=== PATIENT | female | born 1990 | race Caucasian/White ===

== ENCOUNTER 2019-12-13 23:23 | Emergency (ER) | payer SELFPAY ==
[2019-12-13 23:35] VITALS: BP 134/78; PULSE 95; RESP 18; TEMP 37; O2SAT 100; BMI 24.7
[2019-12-13 23:43] LABS: Basophils % 0.4 %; Eosinophils # 0.6 10^3/uL (0.0-0.8); Eosinophils % 6.8 %; Hematocrit 37.9 % (37.0-47.0); Hemoglobin 12.5 g/dL (11.5-15.3); Lymphocytes # 2.9 10^3/uL (0.8-4.8); Lymphocytes % 34.1 %; Mean Corpuscular Hemoglobin 30.1 pg (28.0-34.0); Mean Corpuscular Volume 91.3 fL (81-99); Mean Platelet Volume 10.6 fL (7.4-10.4); Monocytes # 0.4 10^3/uL (0.2-0.9); Monocytes % 5.2 %; Neutrophils # 4.6 10^3/uL (1.8-7.7); Neutrophils % 53.4 %; Nucleated Red Blood Cells % 0 %; Platelet Count 339 10^3/cmm (130-400); Red Blood Count 4.15 10^6/uL (4.1-5.3); Red Cell Distribution Width 13.9 % (12.1-15.1); White Blood Count 8.5 10^3/uL (4.0-10.0)
--- NOTE | 2019-12-13 23:47 | CTR_ITS ---
PROCEDURE INFORMATION: Exam: CT Abdomen And Pelvis With Contrast Exam date and time: 12/13/2019 11:59 PM Age: 29 years old Clinical indication: Nausea; Abdominal pain; Localized; Right lower quadrant (rlq); Additional info: Abd pain TECHNIQUE: Imaging protocol: Computed tomography of the abdomen and pelvis with intravenous contrast. Radiation optimization: All CT scans at this facility use at least one of these dose optimization techniques: automated exposure control; mA and/or kV adjustment per patient size (includes targeted exams where dose is matched to clinical indication); or iterative reconstruction. Contrast material: OMNI 300; Contrast volume: 95 ml; Contrast route: INTRAVENOUS (IV); COMPARISON: No relevant prior studies available. RADIATION DOSE METRICS: Total DLP (mGy-cm): 1723.57 FINDINGS: Liver: There is no focal abnormality within the liver. Gallbladder and bile ducts: The gallbladder is normal. Pancreas: The pancreas is normal. Spleen: The spleen is normal. Adrenals: The adrenal glands are normal. Kidneys and ureters: The kidneys are normal. There is no evidence of renal or ureteral calcifications. There is no evidence of hydronephrosis. Stomach and bowel: There is no evidence of colitis/diverticulitis. There is thickening of the submucosal fat in the cecum as well as mild mucosal enhancement and stranding in the pericecal fat. There is what appears to be an inflamed in cut off diverticulum from the cecum. These findings are worrisome for cecal diverticulitis. Correlation with the clinical findings is suggested. Appendix: A normal appendix is identified. Intraperitoneal space: Unremarkable. No free air. No significant fluid collection. Vasculature: Unremarkable. No abdominal aortic aneurysm. Lymph nodes: Unremarkable. No enlarged lymph nodes. Bladder: Unremarkable as visualized. Reproductive: Unremarkable as visualized. Bones/joints: Unremarkable. No acute fracture. Soft tissues: Unremarkable. CT/CT abdomen pelvis w con* [id number] IMPRESSION: Findings worrisome for cecal diverticulitis. Radiation Dose CTDIVOL = (mGy): DLP = 1723.57 (mGy-cm)
[2019-12-13 23:56] LABS: HCG, Serum Qual Negative (Negative)
--- NOTE | 2019-12-13 23:59 | ED_ITS ---
HPI - Abdominal Pain General: Chief Complaint: Abdominal Pain Stated Complaint: abd pain Time Seen by Provider: 12/13/19 23:41 Source: patient Mode of arrival: ambulatory Limitations: no limitations History of Present Illness: HPI narrative: 29-year-old female who has had right lower abdominal pain over the last 2 days and is worsened today. She states the pain is sharp in nature denies any vomiting or diarrhea. She has been afebrile as well. MD elicited complaint: abdominal pain Pertinent past history: none Onset (ago): day(s) Pain Consistency: constant Location: RLQ Severity: moderate Quality: sharp Radiation: none Migration to: no migration Exacerbating factors: movement Relieving factors: rest Associated Symptoms: Denies chills, dysuria and fever(s) Review of Systems Const: Denies: fever(s), chills, body aches or change in appetite Eyes: Denies: blurry vision or eye discomfort ENMT: Denies: throat pain or dental pain Card: Denies: chest pain Resp: Denies: dyspnea GI: Reports: abdominal pain : Denies: dysuria Musc: Denies: neck pain or back pain Skin/Breast: Denies: rash Neuro: Denies: headache(s) Psych: Denies: depression Juanito/Lymph: Denies: easy bruising All/Imm: Denies: urticaria PFSH ED PFSH: Social History Smoking and tobacco status: current every day smoker Physical Exam Const: COMMON NORMALS: no acute distress, patient oriented x3 and healthy appearing HENMT: COMMON NORMALS: normocephalic and atraumatic HEAD & SCALP: normocephalic and atraumatic Eye: COMMON NORMALS: Equal, round and reactive pupils present and EOMs intact bilaterally PUPIL: Yes Equal, round and reactive pupils present Neck/C-Spine: COMMON NORMALS: full ROM and supple Chest: COMMONS NORMALS: normal inspection of the chest and normal palpation of entire chest wall Resp: COMMON NORMALS: normal respiratory effort, No retractions, No use of accessory muscles and clear to auscultation bilaterally AUSCULTATION: clear to auscultation bilaterally Cardio: COMMON NORMALS: regular rate, regular rhythm and No murmurs present (Cardio) RATE: regular rate RHYTHM: regular rhythm GI: COMMON NORMALS: Normal to inspection, nondistended, normoactive bowel sounds present, Soft to palpation and no masses PALPATION: Yes Soft to palpation and Yes Tenderness to palpation present (GI) Details: RLQ Extremity: COMMON NORMALS: normal to inspection and full ROM Neuro: COMMON NORMALS: patient oriented x3, moves all extremities and no focal motor deficits Psych: COMMON NORMALS: mental status grossly normal, Normal thought process present and cooperative THOUGHT PROCESS: Normal thought process present Skin: COMMON NORMALS: no rashes or lesions noted and no wounds GENERAL SKIN EXAM: no rashes or lesions noted Course Vital Signs: Vital signs: Vital Signs Temperature 98.6 F 12/13/19 23:35 Pulse Rate 95 12/13/19 23:35 Respiratory Rate 18 12/13/19 23:35 Blood Pressure 134/78 12/13/19 23:35 Pulse Oximetry 100 12/13/19 23:35 MDM - Abdominal Pain MDM Narrative: Medical decision making narrative: Patient presents with abdominal pain and CT shows diverticulitis. Patient's white count is normal and has no abscess. We will place her on Augmentin and she is stable for discharge. She is to follow-up primary care doctor in 2 to 4 days return if worsening. Lab Data: Labs: Lab Results 12/13/19 12/13/19 12/13/19 Range/Units 23:38 23:38 23:38 WBC 8.5 (4.0-10.0) 10^3/ uL RBC 4.15 (4.1-5.3) 10^6/u L Hgb 12.5 (11.5-15.3) g/dL Hct 37.9 (37.0-47.0) % MCV 91.3 (81-99) fL MCH 30.1 (28.0-34.0) pg MCHC 33.0 (30.0-36.0) g/dL RDW 13.9 (12.1-15.1) % Plt Count 339 (130-400) 10^3/c mm MPV 10.6 H (7.4-10.4) fL Neut % (Auto) 53.4 % Lymph % (Auto) 34.1 % Petroleum % (Auto) 5.2 % Eos % (Auto) 6.8 % Baso % (Auto) 0.4 % Neut # (Auto) 4.6 (1.8-7.7) 10^3/u L Lymph # (Auto) 2.9 (0.8-4.8) 10^3/u L Petroleum # (Auto) 0.4 (0.2-0.9) 10^3/u L Eos # (Auto) 0.6 (0.0-0.8) 10^3/u L Baso # (Auto) 0.0 (0.0-0.1) 10^3/u L Nucleated RBC % (a uto) 0 % Nucleated RBCs # 0.0 /100WBC Sodium 140 (136-145) mmol/L Potassium 3.9 (3.5-5.1) mmol/L Chloride 103 (98-107) mmol/L Carbon Dioxide 23 (22-29) mmol/L Anion Gap 17.9 (5-19) BUN 18 (6-20) mg/dL Creatinine 1.1 H (0.5-0.9) mg/dL GFR Calculation 58.7 L (90-130) mL/min Glucose 110 (65-115) mg/dL Calculated Osmolal ity 287 (285-295) mOsm/k g Calcium 9.3 (8.5-10.5) mg/dL Total Bilirubin 0.2 (0.15-1.2) mg/dL AST 38 H (0-32) U/L ALT 34 H (0-33) U/L Alkaline Phosphata se 82 (35-105) IU/L Total Protein 7.2 (6.6-8.7) g/dL Albumin 4.3 (3.5-5.2) g/dL Globulin 2.9 (1.3-4.6) g/dL Lipase 31 (13-60) U/L HCG, Qual Negative (Negative) Imaging Data ^: CT Abd/Pel: Radiologist's impression: [address] [place] [address] CT Scan Report Signed Patient: Franchesca Rinaldi Unit #: [id number] : 1990 Age/Sex: 29 / F ADM Date: 12/13/19 Loc: ER Room/Bed: Attending Dr: Ordering Provider/Ordering MD: Alli Oliver MD Date of Service: 12/13/19 Procedure(s): CT abdomen pelvis w con* [id number] Accession Number(s): [id number] Report Number: [id number] PROCEDURE INFORMATION: Exam: CT Abdomen And Pelvis With Contrast Exam date and time: 12/13/2019 11:59 PM Age: 29 years old Clinical indication: Nausea; Abdominal pain; Localized; Right lower quadrant (rlq); Additional info: Abd pain TECHNIQUE: Imaging protocol: Computed tomography of the abdomen and pelvis with intravenous contrast. Radiation optimization: All CT scans at this facility use at least one of these dose optimization techniques: automated exposure control; mA and/or kV adjustment per patient size (includes targeted exams where dose is matched to clinical indication); or iterative reconstruction. Contrast material: OMNI 300; Contrast volume: 95 ml; Contrast route: INTRAVENOUS (IV); COMPARISON: No relevant prior studies available. RADIATION DOSE METRICS: Total DLP (mGy-cm): 1723.57 FINDINGS: Liver: There is no focal abnormality within the liver. Gallbladder and bile ducts: The gallbladder is normal. Pancreas: The pancreas is normal. Spleen: The spleen is normal. Adrenals: The adrenal glands are normal. Kidneys and ureters: The kidneys are normal. There is no evidence of renal or ureteral calcifications. There is no evidence of hydronephrosis. Stomach and bowel: There is no evidence of colitis/diverticulitis. There is thickening of the submucosal fat in the cecum as well as mild mucosal enhancement and stranding in the pericecal fat. There is what appears to be an inflamed in cut off diverticulum from the cecum. These findings are worrisome for cecal diverticulitis. Correlation with the clinical findings is suggested. Appendix: A normal appendix is identified. Intraperitoneal space: Unremarkable. No free air. No significant fluid collection. Vasculature: Unremarkable. No abdominal aortic aneurysm. Lymph nodes: Unremarkable. No enlarged lymph nodes. Bladder: Unremarkable as visualized. Reproductive: Unremarkable as visualized. Bones/joints: Unremarkable. No acute fracture. Soft tissues: Unremarkable. CT/CT abdomen pelvis w con* [id number] IMPRESSION: Findings worrisome for cecal diverticulitis. Discharge Plan Discharge Patient Disposition: Home, Self-Care Clinical Impression: Diverticulitis Condition: Stable Prescriptions: [place] 5-325 mg tablet 1 tab PO Q6H PRN (Reason: pain) Qty: 14 RF: 0 ondansetron 4 mg tablet,disintegrating 4 mg PO Q6H PRN (Reason: nausea and vomiting) Qty: 14 RF: 0 Augmentin 875-125 mg tablet 1 tab PO BID Qty: 20 RF: 0 Discharge Orders: Discharge Order (Routine); Ordered 12/14/19 Ordered By: Alli Oliver Referrals: Van Zapata MD [Primary Care Provider] - 1-3 days Discharge Diet: Advance as tolerated Discharge Activity: Resume usual activity Patient Instructions: Diverticulitis (ED) Coding Level of Care Code ED [employer]ed [employer] Bo[employer] 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
[2019-12-14 00:02] LABS: Alanine Aminotransferase 34 U/L (0-33); Albumin Level 4.3 g/dL (3.5-5.2); Alkaline Phosphatase 82 IU/L (35-105); Anion Gap 17.9 (5-19); Aspartate Amino Transferase 38 U/L (0-32); Blood Urea Nitrogen 18 mg/dL (6-20); Calcium 9.3 mg/dL (8.5-10.5); Carbon Dioxide 23 mmol/L (22-29); Chloride 103 mmol/L (98-107); Globulin 2.9 g/dL (1.3-4.6); Glomerular Filtration Rate 58.7 mL/min (90-130); Glucose 110 mg/dL (65-115); Lipase 31 U/L (13-60); Osmolality Calculated 287 mOsm/kg (285-295); Potassium 3.9 mmol/L (3.5-5.1); Sodium 140 mmol/L (136-145); Total Bilirubin 0.2 mg/dL (0.15-1.2); Total Protein 7.2 g/dL (6.6-8.7)
[2019-12-14] MEDS: iohexol 300 mg/mL 100 mL Btl IV (00:05)
[2019-12-14] MEDS: morphine 4 mg/mL SDV 1 mL IVP (00:34)
[2019-12-14] MEDS: ondansetron 2 mg/ML SDV 2 mL 4 MG IVP (00:34)
[2019-12-14] MEDS: amoxicillin-clav 875-125 mg Tablet 1 TAB PO (01:10)
[2019-12-14 01:54] VITALS: BP 118/71; PULSE 69; RESP 16; O2SAT 100
[2019-12-14 02:10] LABS: Add Urine Microscopic? NO
[2019-12-14 02:19] LABS: Bilirubin Urine Neg (NEGATIVE); Blood Urine Neg (Negative); Glucose Urine UA Norm (Normal); Ketones Urine Negative (Negative); Leukocyte Esterase Urine Negative (Negative); Nitrate Urine Negative (Negative); Protein Urine Neg (Negative); Specific Gravity, Urine 1.025 (1.005-1.030); Urine Appearance Clear (CLEAR); Urine Color Yellow (Yellow); Urobilinogen Urine 1 mg/dL (Negative); pH Urine 6 (5-7)
== END 2019-12-14 01:59 | disposition home or self-care (01) ==
PROVIDERS: Physician Assistant; Emergency Provider Emergency Medicine; PCP Family Medicine
DX: K57.92 Diverticulitis of intestine, part unspecified, without perforation or abscess without bleeding (principal); F17.210 Nicotine dependence, cigarettes, uncomplicated
CPT/HCPCS: 12345; 36415; 74177; 80053; 81003; 83690; 84703; 85025; 96374; 96375; 99283; J2270; J2405; Q9967

== ENCOUNTER 2020-11-16 16:53 | Emergency (ER) | payer SELFPAY ==
[2020-11-16 17:18] VITALS: BP 126/78; PULSE 66; RESP 18; O2SAT 99; BMI 35.2
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
[2020-11-16 17:48] VITALS: BP 136/83; PULSE 69; RESP 18; O2SAT 99
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
--- NOTE | 2020-11-16 18:06 | PC.NURSE ---
Pt in XR
[2020-11-16] MEDS: HYDROcodone-acetaminophen 5-325 mg Tablet 1 TAB PO (18:18)
== END 2020-11-16 18:22 | disposition home or self-care (01) ==
PROVIDERS: Emergency Provider Nurse Practitioner Family
DX: Z04.1 Encounter for examination and observation following transport accident (principal); V89.2XXA Person injured in unspecified motor-vehicle accident, traffic, initial encounter; F17.210 Nicotine dependence, cigarettes, uncomplicated
CPT/HCPCS: 72040; 73070; 73560; 99283

== ENCOUNTER → 2022-05-17 18:55 | Outpatient (BNVA) | payer MEDICAID, SELFPAY | PROVIDERS: Visit Provider Registered Nurse Neonatal Intensive Care | DX: J02.9 Acute pharyngitis, unspecified (principal) | CPT/HCPCS: 87070; 87071; 87880 ==

== ENCOUNTER → 2022-06-14 10:41 | Outpatient (BNVA) | payer MEDICAID, SELFPAY | PROVIDERS: Visit Provider Registered Nurse Neonatal Intensive Care | DX: M25.512 Pain in left shoulder (principal) | CPT/HCPCS: 73030 ==

== ENCOUNTER → 2022-06-21 15:08 | Outpatient (BNVA) | payer MEDICAID, SELFPAY | PROVIDERS: Visit Provider Family Medicine | DX: Z76.89 Persons encountering health services in other specified circumstances (principal); F41.1 Generalized anxiety disorder; F17.218 Nicotine dependence, cigarettes, with other nicotine-induced disorders; M25.512 Pain in left shoulder; F32.9 Major depressive disorder, single episode, unspecified; M75.42 Impingement syndrome of left shoulder | CPT/HCPCS: 80053; 85025 ==

== ENCOUNTER → 2023-09-23 10:14 | Outpatient (BNVA) | payer MEDICAID, SELFPAY | PROVIDERS: PCP Family Medicine; Visit Provider Physician Assistant | DX: M75.42 Impingement syndrome of left shoulder (principal) | CPT/HCPCS: 73030 ==

== ENCOUNTER → 2023-09-24 09:55 | Outpatient (BNVA) | payer MEDICAID, SELFPAY | PROVIDERS: PCP Family Medicine; Visit Provider Psychiatry & Neurology Neurology | DX: G43.909 Migraine, unspecified, not intractable, without status migrainosus (principal) | CPT/HCPCS: 36415; 80053; 82652; 82746; 83735; 83921; 84439; 84443; 84481; 85025 ==

== ENCOUNTER 2023-11-18 08:26 | Outpatient (CLI) | payer MEDICAID, SELFPAY ==
--- NOTE | 2023-11-18 08:45 | MR_ITS ---
WS: [id number] MRI BRAIN WITH AND WITHOUT CONTRAST HISTORY: G43.909 - Migraine, unspecified, not intractable, without... COMPARISON: None available. TECHNIQUE: Multiplanar imaging performed through the brain with MultiHance 20 ml's IV. No acute infarcts are seen. [place]-white matter differentiation is well preserved. No susceptibility artifacts or prior lacunar infarcts. Ventricles and extra-axial spaces are normal. Clivus and pituitary gland are normal. Visualized posterior fossa and brainstem are also normal. Postcontrast images are negative for masses or vascular malformations. Dural venous sinuses are normal. Paranasal sinuses: Well aerated with no significant disease. Mastoid air cells: Normal. Calvarium and scalp: Normal. MR/MR head wo/w con [id number] IMPRESSION: 1. Normal MRI brain with contrast. 2. No acute or prior infarct. No mass.
--- NOTE | 2023-11-18 09:30 | MR_ITS ---
WS: [id number] MRI CERVICAL SPINE NONCONTRAST HISTORY: M54.2 - Cervicalgia COMPARISON: None available. Technique: Multiplanar, multisequence noncontrast imaging of the cervical spine. Mild straightening of the normal cervical lordosis. No fractures or marrow edema. There is a central cervical cord syrinx extending over a length of 4.1 cm beginning at the mid C6 lev el through T1-2 disc. Transverse diameter of 0.2 cm. Craniocervical junction, C1 and C2 relationship, odontoid process and soft tissues are normal. C2-C3: Normal. C3-C4: Normal. C4-C5: Normal. C5-C6: Mild disc bulging with a central disc protrusion. Effacement of CSF and near contact on the ve ntral cervical cord. Very small foraminal osteophytes. No stenosis. C6-C7: Mild disc bulging with a central small disc protrusion. No stenosis. C7-T1: Normal. Paraspinal soft tissue are normal. MR/MR cervical spin wo con* [id number] IMPRESSION: 1. No cervical spine fractures. 2. Cervicothoracic cord syrinx. Syrinx extends over a length of 4.1 cm from mi d C6 to the T1-2 disc level. For completeness consider follow-up MRI cervical s pine with contrast. 3. Small central disc protrusions at C5-6 and C6-7. Partial effacement of CSF. No cord contact.
[2023-11-18] MEDS: gadobenate dimeglumine 20 mL vial IV (10:18)
== END 2023-11-18 08:27 | disposition home or self-care (01) ==
LOC: RAD 08:26
PROVIDERS: PCP Family Medicine; Visit Provider Psychiatry & Neurology Neurology
DX: G95.89 Other specified diseases of spinal cord (principal); G43.909 Migraine, unspecified, not intractable, without status migrainosus; M50.322 Other cervical disc degeneration at C5-C6 level; M50.323 Other cervical disc degeneration at C6-C7 level; M50.222 Other cervical disc displacement at C5-C6 level; M50.223 Other cervical disc displacement at C6-C7 level; M25.78 Osteophyte, vertebrae
CPT/HCPCS: 70553; 72141; A9577

== ENCOUNTER 2024-06-22 23:55 | Emergency (ER) | payer MEDICAID, SELFPAY ==
[2024-06-23] VITALS (7 sets, daily range): BP systolic 120–172; BP diastolic 89–131; PULSE 88–98; RESP 16; TEMP 37.2; O2SAT 97–100
--- NOTE | 2024-06-23 00:20 | CTR_ITS ---
PROCEDURE INFORMATION: Exam: CT Cervical Spine Without Contrast Exam date and time: 06/23/2024 12:33 AM Age: 33 years old Clinical indication: Numbness; Additional info: Left neck pain, left facial left arm numbness tingling TECHNIQUE: Imaging protocol: Computed tomography of the cervical spine without contrast. Radiation optimization: All CT scans at this facility use at least one of these dose optimization techniques: automated exposure control; mA and/or kV adjustment per patient size (includes targeted exams where dose is matched to clinical indication); or iterative reconstruction. COMPARISON: MR cervical spin wo con* [id number] 11/18/2023 9:22 AM RADIATION DOSE METRICS: Total DLP (mGy-cm): 299.47 FINDINGS: Bones: No acute fracture or subluxation. Straightening of the cervical lordosis. No significant disc bulge or herniation. No severe spinal canal stenosis. No significant neural foraminal narrowing. Lungs: Lung apices are normal. Soft tissues: Unremarkable. CT/CT cervical spin wo con* [id number] IMPRESSION: No evidence for acute cervical fracture or subluxation. No severe cervical canal or foraminal narrowing. Straightening of the cervical lordosis may be due to patient positioning or muscle spasm.
--- NOTE | 2024-06-23 00:20 | CTR_ITS ---
PROCEDURE INFORMATION: Exam: CT Head Without Contrast Exam date and time: 06/23/2024 12:30 AM Age: 33 years old Clinical indication: Numbness / parasthesia; Left; Additional info: Left-sided facial numbness TECHNIQUE: Imaging protocol: Computed tomography of the head without contrast. Radiation optimization: All CT scans at this facility use at least one of these dose optimization techniques: automated exposure control; mA and/or kV adjustment per patient size (includes targeted exams where dose is matched to clinical indication); or iterative reconstruction. COMPARISON: MR head wo/w con [id number] 11/18/2023 9:44 AM RADIATION DOSE METRICS: Total DLP (mGy-cm): 1130.87 FINDINGS: Brain: Normal. No hemorrhage. Unremarkable white matter. No mass effect. Cerebral ventricles: No ventriculomegaly. Paranasal sinuses: Visualized sinuses are unremarkable. No fluid levels. Mastoid air cells: Visualized mastoid air cells are well aerated. Bones: Unremarkable. No acute fracture. Soft tissues: Unremarkable. CT/CT head wo con* [id number] IMPRESSION: No acute intracranial abnormality.
--- NOTE | 2024-06-23 00:24 | ED_ITS ---
HPI - General Adult 2 General: Chief complaint: Neuro Symptoms/Deficit Stated complaint: Dizzy Spells\Numbness on Left Side Time Seen by Provider: 06/23/24 00:04 History of Present Illness: Patient says she has had intermittent worsening neck pain and left numbness and tingling on the left side of her face left upper extremity. She says she does know she has a bad neck and needs to go see a neurosurgeon but has not made appointment yet due to insurance reasons. It has been advancing and worsened over the last 4 days. Related Data Previous Rx's Medication Instructions Recorded sumatriptan succinate 100 mg tablet 100 mg PO Q2H PRN migraine 11/04/23 headache #60 tabs duloxetine 60 mg capsule,delayed 60 mg PO DAILY #30 caps 04/08/24 release (Cymbalta) nicotine 7 mg/24 hr daily 1 patch transdermal Q24H #30 ea 04/08/24 transdermal patch trazodone 50 mg tablet 100 mg (2 x 50 mg) PO .HS PRN 04/08/24 insomnia #60 tabs varenicline 1 mg tablet 1 mg PO BID #56 tabs 04/08/24 lamotrigine 100 mg tablet,extended 100 mg PO DAILY #30 tabs 04/15/24 release 24 hr (Lamictal XR) famotidine 20 mg tablet (Pepcid) 20 mg PO BID 2 weeks #28 tabs 05/26/24 hydroxyzine HCl 10 mg tablet 10 mg PO TID PRN itching #30 tabs 05/26/24 prednisone 20 mg tablet 20 mg PO DAILY 5 days #5 tabs 05/26/24 Allergies Allergy/AdvReac Type Severity Reaction Status Date / Time No Known Allergies Allergy Verified 05/26/24 10:01 Review of Systems 2 General: Reports: 10 or more systems reviewed and unremarkable except in HPI and below PFSH ED 2 PFSH: Medical History Psychiatric care Chronic migraine Social History Smoking and tobacco/nicotine status: unknown if used tobacco/nicotine Second hand smoke exposure: No Alcohol intake: current Alcohol intake frequency: holidays/special occasions only Substance/Drug Use: never Adopted: No Caregiver/support person: No Lives independently: Yes Physical Exam 2 Const: COMMON NORMALS: no acute distress, average body habitus, patient oriented x3, no limitations, healthy appearing, alert and well nourished HENMT: COMMON NORMALS: normocephalic, atraumatic, hearing grossly normal bilaterally, external ears normal, Normal external nose present and moist oral mucous membranes HEAD & SCALP: normocephalic and atraumatic NOSE: Normal external nose present EXTERNAL EAR: Yes external ears normal Eye: COMMON NORMALS: Equal, round and reactive pupils present, EOMs intact bilaterally, conjunctivae normal and no scleral icterus CONJUNCTIVA: Yes conjunctivae normal PUPIL: Yes Equal, round and reactive pupils present Neck/C-Spine: COMMON NORMALS: full ROM, no lymphadenopathy, supple, no meningeal signs, no JVD and Thyroid normal THYROID: Thyroid normal Chest: COMMONS NORMALS: normal inspection of the chest and normal palpation of entire chest wall Resp: COMMON NORMALS: normal respiratory effort, No retractions, No use of accessory muscles and clear to auscultation bilaterally AUSCULTATION: clear to auscultation bilaterally Cardio: COMMON NORMALS: no JVD, regular rate, regular rhythm, S1 normal heart sound present, S2 normal heart sound present, No gallops present (Cardio), No clicks present (Cardio), No murmurs present (Cardio) and No rub (Cardio) R ATE: regular rate RHYTHM: regular rhythm HEART SOUNDS: S1 normal heart sound present and S2 normal heart sound present GI: COMMON NORMALS: Normal to inspection, nondistended, normoactive bowel sounds present, Soft to palpation, non-tender, No hepatosplenomegaly present and no masses PALPATION: Yes Soft to palpation and Yes No hepatosplenomegaly present Neuro: COMMON NORMALS: patient oriented x3 SENSORIUM/ORIENTATION: Yes alert MENINGEAL SIGNS: Yes no meningeal signs Course 2 Vital Signs: Vital signs: Vital Signs Temperature 99.0 F 06/23/24 00:16 Pulse Rate 90 06/23/24 02:30 Respiratory Rate 16 06/23/24 00:16 Blood Pressure 120/89 06/23/24 02:30 Pulse Oximetry 98 06/23/24 02:30 Oxygen Delivery Me thod Room Air 06/23/24 02:30 [facility] - General Adult Medical Decision Making Lab work was ordered as well as cervical spine and head CT, all which was essentially benign. These results was discussed with the patient. Patient will be discharged home to follow-up with her PCP for further evaluation and treatment. Medical Records I reviewed the patient's medical records. Lab Data I reviewed the patient's lab results. 06/23/24 00:44 06/23/24 00:44 Radiology Impressions Cervical Spine CT 06/23/24 00:20 IMPRESSION: No evidence for acute cervical fracture or subluxation. No severe cervical canal or foraminal narrowing. Straightening of the cervical lordosis may be due to patient positioning or muscle spasm. Head CT 06/23/24 00:20 IMPRESSION: No acute intracranial abnormality. Laboratory Results WBC 7.42 10^3/uL (3.29-11.43) 06/23/24 00:44 RBC 4.25 10^6/uL (3.85-5.65) 06/23/24 00:44 Hgb 12.90 g/dL (11.27-16.99) 06/23/24 00:44 Hct 39.8 % (36-47) 06/23/24 00:44 MCV 93.6 fl (85-98) 06/23/24 00:44 MCH 30.4 pg (27-33) 06/23/24 00:44 MCHC 32.4 g/dL (30-55) 06/23/24 00:44 RDW 13.8 % (12.1-15.1) 06/23/24 00:44 Plt Count 327 10^3/cmm (157-399) 06/23/24 00:44 MPV 10.7 fL (7.4-10.4) H 06/23/24 00:44 Neut % (Auto) 65.1 % 06/23/24 00:44 Lymph % (Auto) 27.4 % 06/23/24 00:44 Cowley % (Auto) 6.2 % 06/23/24 00:44 Eos % (Auto) 0.8 % 06/23/24 00:44 Baso % (Auto) 0.4 % 06/23/24 00:44 Neut # (Auto) 4.83 10^3/uL (1.8-7.7) 06/23/24 00:44 Lymph # (Auto) 2.0 10^3/uL (0.8-4.8) 06/23/24 00:44 Cowley # (Auto) 0.5 10^3/uL (0.2-0.9) 06/23/24 00:44 Eos # (Auto) 0.1 10^3/uL (0.0-0.8) 06/23/24 00:44 Baso # (Auto) 0.0 10^3/uL (0.0-0.1) 06/23/24 00:44 Nucleated RBC % (auto) 0 % 06/23/24 00:44 Nucleated RBCs # 0.0 /100WBC 06/23/24 00:44 Sodium 141 mmol/L (136-145) 06/23/24 00:44 Potassium 3.8 mmol/L (3.5-5.1) 06/23/24 00:44 Chloride 105 mmol/L (98-107) 06/23/24 00:44 Carbon Dioxide 24 mmol/L (22-29) 06/23/24 00:44 Anion Gap 15.8 (5-19) 06/23/24 00:44 BUN 11 mg/dL (6-20) 06/23/24 00:44 Creatinine 0.9 mg/dL (0.5-0.9) 06/23/24 00:44 GFR Calculation 72.1 mL/min (90-130) L 06/23/24 00:44 Glucose 90 mg/dL (65-115) 06/23/24 00:44 Calculated Osmolality 291 mOsm/kg (285-295) 06/23/24 00:44 Calcium 9.3 mg/dL (8.5-10.5) 06/23/24 00:44 Magnesium 1.9 mg/dL (1.7-2.3) 06/23/24 00:44 Total Bilirubin 0.2 mg/dL (0.15-1.2) 06/23/24 00:44 AST 15 U/L (0-32) 06/23/24 00:44 ALT 18 U/L (0-33) 06/23/24 00:44 Alkaline Phosphatase 76 U/L (35-105) 06/23/24 00:44 C-Reactive Protein 8.4 mg/L (0.0-4.9) H 06/23/24 00:44 Total Protein 7.0 g/dL (6.6-8.7) 06/23/24 00:44 Albumin 4.0 g/dL (3.5-5.2) 06/23/24 00:44 Globulin 3.0 g/dL (1.3-4.6) 06/23/24 00:44 Urine Color Yellow (Yellow) 06/23/24 01:00 Urine Appearance Cloudy (CLEAR) A 06/23/24 01:00 Urine pH 6.5 (5-7) 06/23/24 01:00 Ur Specific [place] 1.021 (1.005-1.030) 06/23/24 01:00 Urine Protein Negative (Negative) 06/23/24 01:00 Urine Glucose (UA) Negative (Normal) 06/23/24 01:00 Urine Ketones Negative (Negative) 06/23/24 01:00 Urine Blood Negative (Negative) 06/23/24 01:00 Urine Nitrate Negative (Negative) 06/23/24 01:00 Urine Bilirubin Negative (Negative) 06/23/24 01:00 Urine Urobilinogen 1.0 mg/dL (Negative) 06/23/24 01:00 Ur Leukocyte Esterase Negative (Negative) 06/23/24 01:00 Urine RBC 0-2 /hpf (0-2) 06/23/24 01:00 Urine WBC 0-5 /hpf (0-5) 06/23/24 01:00 Ur Squamous Epith Cells 0-5 /hpf (0-5) 06/23/24 01:00 Amorphous Sediment Not Reportable 06/23/24 01:00 Urine Bacteria None seen /hpf (NONE) 06/23/24 01:00 Hyaline Casts 0-4 /lpf H 06/23/24 01:00 All radiology interpretation(s) finalized by discharge Discharge Plan Discharge Patient Disposition: Home Clinical Impression: Paresthesias Condition: Stable Prescriptions: No Action nicotine 7 mg/24 hr patch 24 hour 1 patch transdermal Q24H Qty: 30 2RF varenicline 1 mg tablet 1 mg PO BID Qty: 56 0RF trazodone 50 mg tablet 100 mg PO .HS PRN (Reason: insomnia) Qty: 60 2RF duloxetine [Cymbalta] 60 mg capsule,delayed release(DR/EC) 60 mg PO DAILY Qty: 30 2RF prednisone 20 mg tablet 20 mg PO DAILY 5 Days Qty: 5 0RF famotidine [Pepcid] 20 mg tablet 20 mg PO BID 14 Days Qty: 28 0RF hydroxyzine HCl 10 mg tablet 10 mg PO TID PRN (Reason: itching) Qty: 30 0RF sumatriptan succinate 100 mg tablet 100 mg PO Q2H PRN (Reason: migraine headache) Qty: 60 0RF Rx Instructions: do not exceed 2 doses per 24 hrs lamotrigine [Lamictal XR] 100 mg tablet extended release 24hr 100 mg PO DAILY Qty: 30 5RF Discharge Orders: Discharge ED (Routine); Ordered 06/23/24 Ordered By: Montana Velez Referrals: Christofer Plascencia DO [Primary Care Provider] - 1 week Patient Instructions: Paresthesia (ED) Activity Restrictions/Additional Instructions: Your evaluation performed in the ER including lab work and imaging did not show any acute cause of your numbness and tingling. Please follow-up with your neurologist and/or family practice physician within the next 7 to 10 days for further evaluation and treatment. Thank you for choosing [facility] for your healthcare needs today. Please realize that you were seen in the emergency department and that we are providing you with an emergency medical screening exam and this may not be a complete and all exclusive of all testing and/or medical workup we may need to determine your element or severity of your illness. It is very important that you follow-up as instructed with your primary care provider or specialist for the additional evaluation and to discuss your medical treatment plan. You may return to the emergency department should you have concerns or if your condition changes or worsens in any way. Coding Level of Care Code ED Guest Service Host for Blaise Hayward
[2024-06-23 00:56] LABS: Basophils % 0.4 %; Eosinophils # 0.1 10^3/uL (0.0-0.8); Eosinophils % 0.8 %; Hematocrit 39.8 % (36-47); Lymphocytes % 27.4 %; Mean Corpuscular HGB Conc 32.4 g/dL (30-55); Mean Corpuscular Hemoglobin 30.4 pg (27-33); Mean Corpuscular Volume 93.6 fl (85-98); Mean Platelet Volume 10.7 fL (7.4-10.4); Monocytes # 0.5 10^3/uL (0.2-0.9); Monocytes % 6.2 %; Neutrophils # 4.83 10^3/uL (1.8-7.7); Neutrophils % 65.1 %; Nucleated Red Blood Cells % 0 %; Platelet Count 327 10^3/cmm (157-399); Red Blood Count 4.25 10^6/uL (3.85-5.65); Red Cell Distribution Width 13.8 % (12.1-15.1); White Blood Count 7.42 10^3/uL (3.29-11.43)
[2024-06-23 01:07] LABS: Bilirubin Urine Negative (Negative); Blood Urine Negative (Negative); Glucose Urine UA Negative (Normal); Ketones Urine Negative (Negative); Leukocyte Esterase Urine Negative (Negative); Nitrate Urine Negative (Negative); Protein Urine Negative (Negative); Specific Gravity, Urine 1.021 (1.005-1.030); Urine Appearance Cloudy (CLEAR); Urine Color Yellow (Yellow); pH Urine 6.5 (5-7)
[2024-06-23 01:10] LABS: Alanine Aminotransferase 18 U/L (0-33); Alkaline Phosphatase 76 U/L (35-105); Anion Gap 15.8 (5-19); Aspartate Amino Transferase 15 U/L (0-32); Blood Urea Nitrogen 11 mg/dL (6-20); C Reactive Protein 8.4 mg/L (0.0-4.9); Calcium 9.3 mg/dL (8.5-10.5); Carbon Dioxide 24 mmol/L (22-29); Chloride 105 mmol/L (98-107); Creatinine Clr Calc Pharmacy 114.5206; Glomerular Filtration Rate 72.1 mL/min (90-130); Glucose 90 mg/dL (65-115); Magnesium 1.9 mg/dL (1.7-2.3); Osmolality Calculated 291 mOsm/kg (285-295); Potassium 3.8 mmol/L (3.5-5.1); Sodium 141 mmol/L (136-145); Total Bilirubin 0.2 mg/dL (0.15-1.2)
[2024-06-23 01:12] LABS: Add Urine Microscopic? YES; Bacteria Urine None Seen /hpf; Hyaline Casts Urine 0-4 /lpf; RBC Urine 0-2 /hpf (0-2); Squamous Epithelial Cell Urine 0-5 /hpf (0-5); WBC Urine 0-5 /hpf (0-5)
== END 2024-06-23 03:30 | disposition home or self-care (01) ==
PROVIDERS: Emergency Provider Emergency Medicine; PCP Family Medicine
DX: R20.2 Paresthesia of skin (principal)
CPT/HCPCS: 36415; 70450; 72125; 80053; 81001; 83735; 85025; 86140; 99284

== ENCOUNTER → 2024-09-16 09:30 | Outpatient (BNVA) | payer MEDICAID, SELFPAY | PROVIDERS: PCP Family Medicine; Visit Provider Family Medicine | DX: R53.82 Chronic fatigue, unspecified (principal); R63.5 Abnormal weight gain | CPT/HCPCS: 80053; 84439; 84443 ==

== ENCOUNTER 2025-01-31 20:53 | Emergency (ER) | payer MEDICAID, SELFPAY ==
[2025-01-31 20:53] VITALS: BP 138/91; PULSE 97; RESP 17; TEMP 37; O2SAT 100; BMI 36.0
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
[2025-01-31 21:42] VITALS: BP 136/68; PULSE 89; O2SAT 98
[2025-01-31] MEDS: HYDROcodone-acetaminophen 10-325 mg Tablet 1 TAB PO (22:41)
[2025-01-31 22:51] VITALS: BP 149/94; PULSE 89; O2SAT 99
--- OUTSIDE RECORDS SUMMARY | 2025-02-02 12:32 | XMS_ITS | Clinical Summary ---
Author Organization [facility] Address [address] [facility] [address] [place] [address] Phone Care Team Providers Care Smoke And Flame Specialist Name Role Phone Unavailable Primary Care Provider Unavailabl e Allergies No known active allergies Medications traZODone (DESYREL) 50 mg tablet TAKE 2 TABLETS BY MOUTH AT BEDTIME NEEDED FOR INSOMNIA 06/21/2024 Active Active Problems No known active problems Encounters Date Type Department Care Team Description 01/25/2025 External Device Data [facility] Provider, Abstract 01/05/2025 External Device Data [facility] Provider, Abstract 01/04/2025 External Device Data [facility] Provider, Abstract 12/14/2024 External Device Data [facility] Provider, Abstract 12/07/2024 External Device Data [facility] Provider, Abstract 11/11/2024 External Device Data [facility] Provider, Abstract 11/10/2024 External Device Data [facility] Provider, Abstract 11/09/2024 External Device Data [facility] Provider, Abstract from Last 3 Months Immunizations Immunization Administration Dates Next Due (M-M-R II/PRIORIX)(12 MO UP) MEASLES, MUMPS AND RUBELLA VIRUS VACCINE, 0.5 ML IM/SUBCUT 02/06/1996,03/17/1992 Dt Dtp Dtap Vaccine 02/19/2006, 6,03/17/1992,1991,1990,1990 HIB, Unspecified Formulation 06/22/1992, 08/09/1991,1990,1990 Hepatitis A Vaccine 02/19/2006 Hepatitis B Vaccine 10/16/1999,05/07/1999,1995 IPV/OPV 02/06/1996, 2,1990,1990 Social History Tobacco Use Types Packs/Day Years Used Date Smoking Tobacco: Every Day Cigarettes Tobacco Cessation:Ready to Q uit: Not Asked; Counseling Given: Not Answered Comments Unknown Sex and Gender Information Value Date Recorded Sex Assigned at Female 09/13/2024 11:24 AM CDT Legal Sex Female 11:20 AM CDT Gender Identity Female 09/13/2024 11:24 AM CDT Sexual Orientation Straight 09/13/2024 11 :25 AM CDT Last Filed Vital Signs Vital Sign Reading Time Taken Comments Blood Pressure 122/74 09/22/2024 11:43 AM CDT Pulse - - Temperature - - Respiratory Rate - - Oxygen Saturation - - Inhaled Oxygen Concentration - - Weight 109.8 kg (242 lb) 09/22/2024 11:43 AM CDT Height 170.2 cm (5' 7 ) 09/22/2024 11:43 AM CDT Body Mass Index 37.9 09/22/2024 11:43 AM CDT Plan of Treatment Health Maintenance Due Date Last Done Comments HPV VACCINES (1 - 3-dose series) 2005 HPV/Cotest (21-29) 2011 DTAP/TDAP/TD VACCINES (7 - Tdap) 02/20/2016 02/19/2006, 02/06/1996, 03/17/1992, Additional history exists CERVICAL CANCER SCREENING 2020 HPV/Cotest (30-65) 2020 PAP SMEAR 2020 INFLUENZA VACCINE (#1) 2025 HEPATITIS B VACCINES Completed 10/16/1999, 10/16/1999, 05/07/1999, Additional history exists Insurance [facility] [id number] Member Subscriber Plan / Payer (Ef fective 2024-Present) Name:GALE Askew Relation to Subscriber:Self Name:GALE Askew Payer ID:[id number] (NAIC) Group ID:[id number] Type:HMO Address: [place] [phone]
--- OUTSIDE RECORDS SUMMARY | 2025-02-02 12:32 | XMS_ITS | Encounter Summary ---
Author Organization [facility] Address [address] [place] [address] Care Team Providers Care Technician Test Systems Name Role Phone Unavailable Primary Care Provider Unavailabl e Encounter Details Date Type Department Care Team (Late st Contact Info) Description 01/25/2025 External Device Data [facility] Provider, Abstract NO ADDRESS ON FILE Social History Tobacco Use Types Packs/Day Years Used Date Smoking Tobacco: Every Day Cigarettes Comments Unknown Sex and Gender Information Value Date Recorded Sex Assigned at Female 09/13/2024 11:24 AM CDT Legal Sex Female 11:20 AM CDT Gender Identity Female 09/13/2024 11:24 AM CDT Sexual Orientation Straight 09/13/2024 11 :25 AM CDT documented as of this encounter Plan of Treatment Not on file documented as of this encounter Visit Diagnoses Not on filedocumented in this encounter
== END 2025-01-31 23:22 | disposition home or self-care (01) ==
PROVIDERS: Emergency Provider Emergency Medicine; PCP Family Medicine
DX: S00.12XA Contusion of left eyelid and periocular area, initial encounter (principal); S09.8XXA Other specified injuries of head, initial encounter; Y04.2XXA Assault by strike against or bumped into by another person, initial encounter; F17.290 Nicotine dependence, other tobacco product, uncomplicated
CPT/HCPCS: 70450; 70486; 72125; 99284; J9999

== ENCOUNTER → 2025-04-28 09:09 | Outpatient (BNVA) | payer MEDICAID, SELFPAY | PROVIDERS: PCP Family Medicine; Visit Provider Family Medicine Adult Medicine | DX: S99.812A Other specified injuries of left ankle, initial encounter (principal); X58.XXXA Exposure to other specified factors, initial encounter; M79.89 Other specified soft tissue disorders; M85.872 Other specified disorders of bone density and structure, left ankle and foot; M77.32 Calcaneal spur, left foot | CPT/HCPCS: 73610 ==